=== PATIENT | male | born 1955 | race Caucasian/White ===

== ENCOUNTER 2019-11-25 11:33 | Emergency (ER) | payer SELFPAY ==
[~2019-11-25] VITALS: Ht 177.8 cm; Wt 68.0 kg
[2019-11-25] MEDS ORDERED: FLUORESCEIN SODIUM 1MG/STRIP BOTHEYE ONE (12:30)
[2019-11-25 13:41] VITALS: BP 151/87
== END 2019-11-25 13:45 | disposition home or self-care (01) ==
LOC: ER 12:20
DX: S05.01XA Injury of conjunctiva and corneal abrasion without foreign body, right eye, initial encounter (principal); H11.32 Conjunctival hemorrhage, left eye; X58.XXXA Exposure to other specified factors, initial encounter; Y93.89 Activity, other specified; Y92.89 Other specified places as the place of occurrence of the external cause; Y99.8 Other external cause status
CPT/HCPCS: 99281